=== PATIENT | female | born 1985 | race Hispanic/Latino ===

== ENCOUNTER 2016-08-12 11:31 | Emergency (ER) | payer OTHER, SELFPAY ==
[~2016-08-12 11:31] MED LIST: ACET50TA PO; IBUP60TA PO; IRON325T PO; PRENTAB56 PO; VITAPRTA PO
[2016-08-12] MEDS ORDERED: KETOROLAC 30 MG/ML VIAL (J1885) As Ordered ONE (12:03)
[2016-08-12] MEDS ORDERED: METOCLOPRAMIDE INJ 10MG/2ML VIAL (J2765) As Ordered ONE (12:03)
[2016-08-12 12:19] LABS: BASO # 0.1 K/mm3 (0.0-0.2); BASO % 1.1 % (0.0-1.0); EOS # 0.3 K/mm3 (0.0-0.50); EOS % 2.7 % (0.0-3.0); LARGE UNSTAINED CELL % 0.4 % (0.0-4.0); LYMPH # 1.4 K/mm3 (1.5-4.5); LYMPH % 12.2 % (24.0-44.0); MEAN CORPUSCULAR HGB CONC 33.4 g/dl (32.0-36.5); MEAN CORPUSCULAR VOLUME 86.8 fl (80.0-96.0); MONO # 0.2 K/mm3 (0.0-0.8); NEUTROPHILS # 9.3 K/mm3 (1.8-7.7); NEUTROPHILS % 81.5 % (36.0-66.0); PLATELET COUNT, AUTOMATED 319 k/mm3 (150-450); RED CELL DISTRIBUTION WIDTH 13.9 % (11.5-14.5); WHITE BLOOD COUNT 11.4 K/mm3 (4.0-10.0)
[2016-08-12 12:35] LABS: ANION GAP 9 MEQ/L (8-16); BLOOD UREA NITROGEN 9 MG/DL (7-18); CALCIUM LEVEL 8.8 MG/DL (8.5-10.1); CARBON DIOXIDE LEVEL 23 MEQ/L (21-32); CHLORIDE LEVEL 106 MEQ/L (98-107); GLOMERULAR FILTRATION RATE > 60.0 (>60); GLUCOSE, FASTING 94 MG/DL (70-105); POTASSIUM SERUM 3.6 MEQ/L (3.5-5.1); SODIUM LEVEL 138 MEQ/L (136-145)
--- NOTE | 2016-08-12 13:29 | EDDOCDS ---
Physician Documentation [facility] Name: Naga Jarvis Age: 31 yrs Sex: Female : 1985 Arrival Date: 08/12/2016 Time: 11:31 Bed I7 / 29 Private MD: SONA Hastings Disposition: 08/12/16 13:13 Discharged to Home/Self Care. Impression: Migraine. - Condition is Stable. - Discharge Instructions: Migraine Headache. - Prescriptions for ZOFRAN ODT 4 mg - dissolve 1 tablet by ORAL route 4 times per day As needed do not chew, do not swallow whole; 10 tablet. - Medication Reconciliation, Work Release Form - 2 day form. - Follow up: Emergency Department; When: As needed. Follow up: SONA Hastings; When: Call to arrange an appointment; Reason: Wound/Symptom Recheck, Recheck today's complaints, Worsening of conditions, Continuance of care. - Problem is new. - Symptoms are resolved. Historical: - Allergies: no known allergies; - Home Meds: 1. Tylenol 325 mg Oral tab 2 tabs as needed (Last dose: 08/12/2016 07:00) - PMHx: Migaine headaches; Anxiety; Depression; - PSHx: none; - Social history: Smoking status: Patient uses tobacco products, current every day smoker. No barriers to communication noted, The patient speaks fluent Estonian. - Family history: Not pertinent. - : The pt / caregiver states he / she is not on anticoagulants. Home medication list is obtained from the patient. - Exposure Risk Screening:: None identified. 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 4 in. (162.56 cm) (R); 13:08 BP 105 / 66; Pulse 59; Resp 18; Temp 97.7(O); Pulse Ox 99% on R/A; Pain 0/10; jml1 11:33 Body Mass Index 22.31 (58.97 kg, 162.56 cm) dd6 MDM: 11:43 UCG by Nursing ordered. cc10 11:43 ketorolac 30 mg IVP once ordered. cc10 11:43 Metoclopramide 10 mg IV at 40 mg/hr once over 15 mins ordered. cc10 11:43 NS 0.9% 1000 ml IV at bolus once ordered. cc10 11:43 IV Saline Lock ordered. cc10 11:44 CBC with Diff Ordered. EDMS 11:44 BMP Ordered. EDMS 12:38 Financial registration complete. mm15 12:40 CBC with Diff Reviewed. cc10 12:40 BMP Reviewed. cc10 12:40 Vital Signs ordered. cc10 12:45 [facility] Payment Agreement was scanned into [employer] app and attached to record. mm15 Point of Care Testing: Urine : 11:53 hCG Reading: Negative; Control Reading: Positive; ct3 Ranges: Administered Medications: 12:20 Drug: ketorolac 30 mg [ketorolac 30 mg/mL (1 mL) injection solution (1 mL)] Route: IVP; ms18 Site: right antecubital; 12:20 Drug: Metoclopramide 10 mg [metoclopramide 5 mg/mL injection solution] Route: IV; Rate: ms18 40 mg/hr; Infused Over: 15 mins; Site: right antecubital; 12:20 Drug: NS 0.9% 1000 ml [sodium chloride 0.9 % intravenous solution] Route: IV; Rate: ms18 bolus; Site: right antecubital; 13:28 Follow up: IV Status: Completed infusion; IV Intake: 1000ml ms18 Signatures: Dispatcher [employer] Ramesh Foy RN RN dwg McGrath, Marlynn mm15 Luis Carlos Ardon PA-C PARoge cc10 Chana Diana RN RN ms18 The chart was reviewed and I authenticate all verbal orders and agree with the evaluation and treatment provided.Attachments: 12:45 [facility] Payment Agreement mm15 MTDD
--- NOTE | 2016-08-12 13:29 | EDDOCDS ---
Nurse's Notes [facility] Name: Naga Jarvis Age: 31 yrs Sex: Female : 1985 Arrival Date: 08/12/2016 Time: 11:31 Bed I7 / 29 Private MD: SONA Hastings Diagnosis: Migraine Presentation: 08/12 11:35 Presenting complaint: Patient states: Multiple complaints, ''Migraine headache'' since dwg 7am today, started vomiting at 8am. Adult Sepsis Screening: The patient does not have new or worsening altered mentation. Patient's respiratory rate is less than 22. Systolic blood pressure is greater than 100. Patient has a qSOFA score of 0- Negative Sepsis Screen. No known or suspected infection- Negative Sepsis Screen. Suicide/Homicide risk assessment- the patient denies having any suicidal and/or homicidal ideations and does not present with any other emotional, behavioral or mental health complaints. Status: The patient is a dependent. Transition of care: patient was not received from another setting of care. 11:35 Acuity: NIESHA Level 3 dwg 11:35 Method Of Arrival: Walkin/Carried/Asstd dwg Triage Assessment: 11:38 General: Appears in no apparent distress, uncomfortable. Pain: Pain currently is 7 out dwg of 10 on a pain scale. HIV screening NA for this visit Offered previously. 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 Tylenol 325 mg Oral tab 2 tabs as needed (Last dose: 08/12/2016 07:00) - PMHx: Migaine headaches; Anxiety; Depression; - PSHx: none; - Social history: Smoking status: Patient uses tobacco products, current every day smoker. No barriers to communication noted, The patient speaks fluent Korean. - Family history: Not pertinent. - : The pt / caregiver states he / she is not on anticoagulants. Home medication list is obtained from the patient. - Exposure Risk Screening:: None identified. Screenin:20 Screening information is obtained from the patient. Fall risk: No risks identified. ms18 Assistance ADL's: requires no assistance with activities of daily living. Abuse/DV Screen: The patient / caregiver reports he/she is: not in a situation that causes fear, pain or injury. Nutritional screening: No deficits noted. Advance Directives: There is no living will. home support is adequate. Assessment: 12:20 General: Appears in no apparent distress, uncomfortable, Behavior is appropriate for ms18 age, cooperative. Pain: Location: head and abdomen Pain currently is 7 out of 10 on a pain scale. Neurological: Level of Consciousness is awake, alert, obeys commands, Oriented to person, place, time, Speech is normal, Facial symmetry appears normal. Respiratory: Airway is patent Respiratory effort is even, unlabored. GI: Abdomen is non- distended Bowel sounds present X 4 quads. Abd is soft X 4 quads Reports nausea, vomiting. Derm: Skin is pink, warm & dry. 13:26 General: Appears in no apparent distress, comfortable, Behavior is appropriate for age, ms18 cooperative, pleasant. Pain: Pain currently is 3 out of 10 on a pain scale. Neurological: Level of Consciousness is awake, alert, obeys commands, Oriented to person, place, time. Respiratory: No deficits noted. Derm: Skin is pink, warm & dry. Vital Signs: 11:33 BP 142 / 79; Pulse 68; Resp 18 S; Temp 97.3(O); Pulse Ox 99% on R/A; Weight 58.97 kg dd6 (R); Height 5 ft. 4 in. (162.56 cm) (R); 13:08 BP 105 / 66; Pulse 59; Resp 18; Temp 97.7(O); Pulse Ox 99% on R/A; Pain 0/10; jml1 11:33 Body Mass Index 22.31 (58.97 kg, 162.56 cm) dd6 Vitals: 11:33 Log In Time: August 12, 2016 at 11:31. dd6 ED Course: 11:33 Patient visited by John Crooks PCA. dd6 11:33 SONA Hastings is Private Physician. dd6 11:33 Patient moved to Waiting dd6 11:34 Patient moved to Pre RCE dd6 11:37 Triage Initiated dwg 11:38 [facility] cc10 11:38 Sandy Jin MD is Attending Physician. cc10 11:38 Patient moved to Triage 3 dwg 11:39 Patient visited by Luis Carlos Ardon PA-C. cc10 11:39 Patient visited by Luis Carlos Ardon PA-C. cc10 11:47 Patient moved to ct3 11:53 Patient visited by Kamryn Charles PCA. ct3 12:13 BMP Sent. jml1 12:13 CBC with Diff Sent. jml1 12:20 The patient / caregiver is instructed regarding the plan of care and ED course. Patient ms18 has correct armband on for positive identification. Placed in gown. Bed in low position. Call light in reach. Property :Personal belongings accompany Pt. 12:20 Inserted saline lock: 18 gauge in right antecubital area and blood collected. The ms18 patient tolerated the procedure well. 12:24 Patient visited by Chana Diana RN. ms18 12:45 [facility] Payment Agreement was scanned into [employer] and attached to record. mm15 13:09 Patient visited by Anup Singh. jml1 13:12 [facility] [place] Referral Physician. cc10 13:26 Patient visited by Chana Diana RN. ms18 13:26 Discontinued IV lock intact, bleeding controlled, pressure dressing applied, No ms18 redness/swelling at site. No procedures done that require assistance. Administered Medications: 12:20 Drug: ketorolac 30 mg [ketorolac 30 mg/mL (1 mL) injection solution (1 mL)] Route: IVP; ms18 Site: right antecubital; 12:20 Drug: Metoclopramide 10 mg [metoclopramide 5 mg/mL injection solution] Route: IV; Rate: ms18 40 mg/hr; Infused Over: 15 mins; Site: right antecubital; 12:20 Drug: NS 0.9% 1000 ml [sodium chloride 0.9 % intravenous solution] Route: IV; Rate: ms18 bolus; Site: right antecubital; 13:28 Follow up: IV Status: Completed infusion; IV Intake: 1000ml ms18 Point of Care Testing: Urine : 11:53 hCG Reading: Negative; Control Reading: Positive; ct3 Ranges: Intake: 13:28 IV: 1000.00ml; Total: 1000.00ml. ms18 Order Results: Lab Order: CBC with Diff; SPEC'M 08/12/16 12:08 Test: WHITE BLOOD COUNT; Value: 11.4; Range: 4.0-10.0; Abnormal: Above high normal; Units: K/mm3; Status: F Test: RED BLOOD COUNT; Value: 4.65; Range: 4.00-5.40; Units: M/mm3; Status: F Test: HEMOGLOBIN; Value: 13.5; Range: 12.0-16.0; Units: g/dl; Status: F Test: HEMATOCRIT; Value: 40.4; Range: 36.0-47.0; Units: %; Status: F Test: MEAN CORPUSCULAR VOLUME; Value: 86.8; Range: 80.0-96.0; Units: fl; Status: F Test: MEAN CORPUSCULAR HEMOGLOBIN; Value: 29.0; Range: 27.0-33.0; Units: pg; Status: F Test: MEAN CORPUSCULAR HGB CONC; Value: 33.4; Range: 32.0-36.5; Units: g/dl; Status: F Test: RED CELL DISTRIBUTION WIDTH; Value: 13.9; Range: 11.5-14.5; Units: %; Status: F Test: PLATELET COUNT, AUTOMATED; Value: 319; Range: 150-450; Units: k/mm3; Status: F Test: NEUTROPHILS %; Value: 81.5; Range: 36.0-66.0; Abnormal: Above high normal; Units: %; Status: F Test: LYMPH %; Value: 12.2; Range: 24.0-44.0; Abnormal: Below low normal; Units: %; Status: F Test: MONO %; Value: 2.0; Range: 0.0-5.0; Units: %; Status: F Test: EOS %; Value: 2.7; Range: 0.0-3.0; Units: %; Status: F Test: BASO %; Value: 1.1; Range: 0.0-1.0; Abnormal: Above high normal; Units: %; Status: F Test: LARGE UNSTAINED CELL %; Value: 0.4; Range: 0.0-4.0; Units: %; Status: F Test: NEUTROPHILS #; Value: 9.3; Range: 1.8-7.7; Abnormal: Above high normal; Units: K/mm3; Status: F Test: LYMPH #; Value: 1.4; Range: 1.5-4.5; Abnormal: Below low normal; Units: K/mm3; Status: F Test: MONO #; Value: 0.2; Range: 0.0-0.8; Units: K/mm3; Status: F Test: EOS #; Value: 0.3; Range: 0.0-0.50; Units: K/mm3; Status: F Test: BASO #; Value: 0.1; Range: 0.0-0.2; Units: K/mm3; Status: F Test: LARGE UNSTAINED CELL #; Value: 0.0; Range: 0.0-0.4; Units: K/mm3; Status: F Lab Order: [facility]; SPEC'M 08/12/16 12:08 Test: GLUCOSE, FASTING; Value: 94; Range: 70-105; Units: MG/DL; Status: F Test: BLOOD UREA NITROGEN; Value: 9; Range: 7-18; Units: MG/DL; Status: F Test: CREATININE FOR GFR; Value: 0.80; Range: 0.55-1.02; Units: MG/DL; Status: F Test: GLOMERULAR FILTRATION RATE; Value: > 60.0; Range: >60; Status: F Test: SODIUM LEVEL; Value: 138; Range: 136-145; Units: MEQ/L; Status: F Test: POTASSIUM SERUM; Value: 3.6; Range: 3.5-5.1; Units: MEQ/L; Status: F Test: CHLORIDE LEVEL; Value: 106; Range: 98-107; Units: MEQ/L; Status: F Test: CARBON DIOXIDE LEVEL; Value: 23; Range: 21-32; Units: MEQ/L; Status: F Test: ANION GAP; Value: 9; Range: 8-16; Units: MEQ/L; Status: F Test: CALCIUM LEVEL; Value: 8.8; Range: 8.5-10.1; Units: MG/DL; Status: F Test Note: ; Units are mL/min/1.73 m2 Chronic Kidney Disease Staging per NKF: Stage I & II GFR >=60 Normal to Mildly Decreased Stage III GFR 30-59 Moderately Decreased Stage IV GFR 15-29 Severely Decreased Stage V GFR <15 Very Little GFR Left ESRD GFR <15 on CORPORATE ASSOCIATE Outcome: 13:13 Discharge ordered by Provider. cc10 13:26 Discharge Assessment: Patient awake, alert and oriented x 3. No cognitive and/or ms18 functional deficits noted. Patient verbalized understanding of disposition instructions. patient administered narcotics - no. The following High Risk Discharge criteria are identified: None. Discharged to home ambulatory. Condition: good Condition: stable Condition: improved. Discharge instructions given to patient, Instructed on discharge instructions, follow up and referral plans. medication usage, Demonstrated understanding of instructions, medications, Pt was receptive of discharge instructions/ teaching. Prescriptions given X 1. No special radiology studies were completed. 13:28 Patient left the ED. ms18 Signatures: Ramesh Joe, RN RN dwg John Crooks, DERRICK BUILDER DERRICK BUILDER dd6 Kamryn Charles, DERRICK BUILDER DERRICK BUILDER ct3 Anup Singh jml1 Anita Samano mm15 Luis Carlos Ardon, PA-C PA-C cc10 Chana Diana,RN RN ms18 MTDD
--- NOTE | 2016-08-14 14:29 | EDDOCDS ---
Physician Documentation [facility] Name: Naga Jarvis Age: 31 yrs Sex: Female : 1985 Arrival Date: 08/12/2016 Time: 11:31 Bed I7 / 29 Private MD: SONA Hastings Disposition: 08/12/16 13:13 Discharged to Home/Self Care. Impression: Migraine. - Condition is Stable. - Discharge Instructions: Migraine Headache. - Prescriptions for ZOFRAN ODT 4 mg - dissolve 1 tablet by ORAL route 4 times per day As needed do not chew, do not swallow whole; 10 tablet. - Medication Reconciliation, Work Release Form - 2 day form. - Follow up: Emergency Department; When: As needed. Follow up: SONA Hastings; When: Call to arrange an appointment; Reason: Wound/Symptom Recheck, Recheck today's complaints, Worsening of conditions, Continuance of care. - Problem is new. - Symptoms are resolved. Historical: - Allergies: no known allergies; - Home Meds: 1. Tylenol 325 mg Oral tab 2 tabs as needed (Last dose: 08/12/2016 07:00) - PMHx: Migaine headaches; Anxiety; Depression; - PSHx: none; - Social history: Smoking status: Patient uses tobacco products, current every day smoker. No barriers to communication noted, The patient speaks fluent Uzbek. - Family history: Not pertinent. - : The pt / caregiver states he / she is not on anticoagulants. Home medication list is obtained from the patient. - Exposure Risk Screening:: None identified. 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 4 in. (162.56 cm) (R); 13:08 BP 105 / 66; Pulse 59; Resp 18; Temp 97.7(O); Pulse Ox 99% on R/A; Pain 0/10; jml1 11:33 Body Mass Index 22.31 (58.97 kg, 162.56 cm) dd6 MDM: 11:43 UCG by Nursing ordered. cc10 11:43 ketorolac 30 mg IVP once ordered. cc10 11:43 Metoclopramide 10 mg IV at 40 mg/hr once over 15 mins ordered. cc10 11:43 NS 0.9% 1000 ml IV at bolus once ordered. cc10 11:43 IV Saline Lock ordered. cc10 11:44 CBC with Diff Ordered. EDMS 11:44 BMP Ordered. EDMS 12:38 Financial registration complete. mm15 12:40 CBC with Diff Reviewed. cc10 12:40 BMP Reviewed. cc10 12:40 Vital Signs ordered. cc10 12:45 [facility] Payment Agreement was scanned into [employer] and attached to record. mm15 17:17 T-Sheet-- Draft Copy was scanned into [employer] and attached to record. klr Point of Care Testing: Urine : 11:53 hCG Reading: Negative; Control Reading: Positive; ct3 Ranges: Administered Medications: 12:20 Drug: ketorolac 30 mg [ketorolac 30 mg/mL (1 mL) injection solution (1 mL)] Route: IVP; ms18 Site: right antecubital; 13:29 Follow up: Response: Pain is decreased ms18 12:20 Drug: Metoclopramide 10 mg [metoclopramide 5 mg/mL injection solution] Route: IV; Rate: ms18 40 mg/hr; Infused Over: 15 mins; Site: right antecubital; 13:28 Follow up: IV Status: Completed infusion ms18 12:20 Drug: NS 0.9% 1000 ml [sodium chloride 0.9 % intravenous solution] Route: IV; Rate: ms18 bolus; Site: right antecubital; 13:28 Follow up: IV Status: Completed infusion; IV Intake: 1000ml ms18 Signatures: Dispatcher [employer] Ramesh Foy RN RN dwg McGrath, Marlynn mm15 Luis Carlos Ardon PA-C PARoge cc10 Chana Diana RN RN ms18 Deanna Garsia The chart was reviewed and I authenticate all verbal orders and agree with the evaluation and treatment provided.Attachments: 12:45 [facility] Payment Agreement mm15 17:17 T-Sheet-- Draft Copy klr Chart Complete MTDD
--- NOTE | 2016-08-14 14:29 | EDDOCDS ---
Physician Documentation [facility] Name: Naga Jarvis Age: 31 yrs Sex: Female : 1985 Arrival Date: 08/12/2016 Time: 11:31 Bed I7 / 29 Private MD: SONA Hastings Disposition: 08/12/16 13:13 Discharged to Home/Self Care. Impression: Migraine. - Condition is Stable. - Discharge Instructions: Migraine Headache. - Prescriptions for ZOFRAN ODT 4 mg - dissolve 1 tablet by ORAL route 4 times per day As needed do not chew, do not swallow whole; 10 tablet. - Medication Reconciliation, Work Release Form - 2 day form. - Follow up: Emergency Department; When: As needed. Follow up: SONA Hastings; When: Call to arrange an appointment; Reason: Wound/Symptom Recheck, Recheck today's complaints, Worsening of conditions, Continuance of care. - Problem is new. - Symptoms are resolved. Historical: - Allergies: no known allergies; - Home Meds: 1. Tylenol 325 mg Oral tab 2 tabs as needed (Last dose: 08/12/2016 07:00) - PMHx: Migaine headaches; Anxiety; Depression; - PSHx: none; - Social history: Smoking status: Patient uses tobacco products, current every day smoker. No barriers to communication noted, The patient speaks fluent Bulgarian. - Family history: Not pertinent. - : The pt / caregiver states he / she is not on anticoagulants. Home medication list is obtained from the patient. - Exposure Risk Screening:: None identified. 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 4 in. (162.56 cm) (R); 13:08 BP 105 / 66; Pulse 59; Resp 18; Temp 97.7(O); Pulse Ox 99% on R/A; Pain 0/10; jml1 11:33 Body Mass Index 22.31 (58.97 kg, 162.56 cm) dd6 MDM: 11:43 UCG by Nursing ordered. cc10 11:43 ketorolac 30 mg IVP once ordered. cc10 11:43 Metoclopramide 10 mg IV at 40 mg/hr once over 15 mins ordered. cc10 11:43 NS 0.9% 1000 ml IV at bolus once ordered. cc10 11:43 IV Saline Lock ordered. cc10 11:44 CBC with Diff Ordered. EDMS 11:44 BMP Ordered. EDMS 12:38 Financial registration complete. mm15 12:40 CBC with Diff Reviewed. cc10 12:40 BMP Reviewed. cc10 12:40 Vital Signs ordered. cc10 12:45 [facility] Payment Agreement was scanned into [employer] and attached to record. mm15 17:17 T-Sheet-- Draft Copy was scanned into [employer] and attached to record. klr Point of Care Testing: Urine : 11:53 hCG Reading: Negative; Control Reading: Positive; ct3 Ranges: Administered Medications: 12:20 Drug: ketorolac 30 mg [ketorolac 30 mg/mL (1 mL) injection solution (1 mL)] Route: IVP; ms18 Site: right antecubital; 13:29 Follow up: Response: Pain is decreased ms18 12:20 Drug: Metoclopramide 10 mg [metoclopramide 5 mg/mL injection solution] Route: IV; Rate: ms18 40 mg/hr; Infused Over: 15 mins; Site: right antecubital; 13:28 Follow up: IV Status: Completed infusion ms18 12:20 Drug: NS 0.9% 1000 ml [sodium chloride 0.9 % intravenous solution] Route: IV; Rate: ms18 bolus; Site: right antecubital; 13:28 Follow up: IV Status: Completed infusion; IV Intake: 1000ml ms18 Signatures: Dispatcher [employer] Ramesh Foy RN RN dwg McGrath, Marlynn mm15 Luis Carlos Ardon PA-C PARoge cc10 Chana Diana RN RN ms18 Deanna Garsia The chart was reviewed and I authenticate all verbal orders and agree with the evaluation and treatment provided.Attachments: 12:45 [facility] Payment Agreement mm15 17:17 T-Sheet-- Draft Copy klr Chart Complete MTDD
--- NOTE | 2016-08-14 14:29 | EDDOCDS ---
Nurse's Notes [facility] Name: Naga Jarvis Age: 31 yrs Sex: Female : 1985 Arrival Date: 08/12/2016 Time: 11:31 Bed I7 / 29 Private MD: SONA Hastings Diagnosis: Migraine Presentation: 08/12 11:35 Presenting complaint: Patient states: Multiple complaints, ''Migraine headache'' since dwg 7am today, started vomiting at 8am. Adult Sepsis Screening: The patient does not have new or worsening altered mentation. Patient's respiratory rate is less than 22. Systolic blood pressure is greater than 100. Patient has a qSOFA score of 0- Negative Sepsis Screen. No known or suspected infection- Negative Sepsis Screen. Suicide/Homicide risk assessment- the patient denies having any suicidal and/or homicidal ideations and does not present with any other emotional, behavioral or mental health complaints. Status: The patient is a dependent. Transition of care: patient was not received from another setting of care. 11:35 Acuity: NIESHA Level 3 dwg 11:35 Method Of Arrival: Walkin/Carried/Asstd dwg Triage Assessment: 11:38 General: Appears in no apparent distress, uncomfortable. Pain: Pain currently is 7 out dwg of 10 on a pain scale. HIV screening NA for this visit Offered previously. 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 Tylenol 325 mg Oral tab 2 tabs as needed (Last dose: 08/12/2016 07:00) - PMHx: Migaine headaches; Anxiety; Depression; - PSHx: none; - Social history: Smoking status: Patient uses tobacco products, current every day smoker. No barriers to communication noted, The patient speaks fluent Ukrainian. - Family history: Not pertinent. - : The pt / caregiver states he / she is not on anticoagulants. Home medication list is obtained from the patient. - Exposure Risk Screening:: None identified. Screenin:20 Screening information is obtained from the patient. Fall risk: No risks identified. ms18 Assistance ADL's: requires no assistance with activities of daily living. Abuse/DV Screen: The patient / caregiver reports he/she is: not in a situation that causes fear, pain or injury. Nutritional screening: No deficits noted. Advance Directives: There is no living will. home support is adequate. Assessment: 12:20 General: Appears in no apparent distress, uncomfortable, Behavior is appropriate for ms18 age, cooperative. Pain: Location: head and abdomen Pain currently is 7 out of 10 on a pain scale. Neurological: Level of Consciousness is awake, alert, obeys commands, Oriented to person, place, time, Speech is normal, Facial symmetry appears normal. Respiratory: Airway is patent Respiratory effort is even, unlabored. GI: Abdomen is non- distended Bowel sounds present X 4 quads. Abd is soft X 4 quads Reports nausea, vomiting. Derm: Skin is pink, warm & dry. 13:26 General: Appears in no apparent distress, comfortable, Behavior is appropriate for age, ms18 cooperative, pleasant. Pain: Pain currently is 3 out of 10 on a pain scale. Neurological: Level of Consciousness is awake, alert, obeys commands, Oriented to person, place, time. Respiratory: No deficits noted. Derm: Skin is pink, warm & dry. Vital Signs: 11:33 BP 142 / 79; Pulse 68; Resp 18 S; Temp 97.3(O); Pulse Ox 99% on R/A; Weight 58.97 kg dd6 (R); Height 5 ft. 4 in. (162.56 cm) (R); 13:08 BP 105 / 66; Pulse 59; Resp 18; Temp 97.7(O); Pulse Ox 99% on R/A; Pain 0/10; jml1 11:33 Body Mass Index 22.31 (58.97 kg, 162.56 cm) dd6 Vitals: 11:33 Log In Time: August 12, 2016 at 11:31. dd6 ED Course: 11:33 Patient visited by John Crooks PCA. dd6 11:33 SONA Hastings is Private Physician. dd6 11:33 Patient moved to Waiting dd6 11:34 Patient moved to Pre RCE dd6 11:37 Triage Initiated dwg 11:38 [facility] cc[facility] 11:38 Sandy Jin MD is Attending Physician. cc10 11:38 Patient moved to Triage 3 dwg 11:39 Patient visited by Luis Carlos Ardon PA-C. cc10 11:39 Patient visited by Luis Carlos Ardon PA-C. cc10 11:47 Patient moved to ct3 11:53 Patient visited by Kamryn Charles PCA. ct3 12:13 BMP Sent. jml1 12:13 CBC with Diff Sent. jml1 12:20 The patient / caregiver is instructed regarding the plan of care and ED course. Patient ms18 has correct armband on for positive identification. Placed in gown. Bed in low position. Call light in reach. Property :Personal belongings accompany Pt. 12:20 Inserted saline lock: 18 gauge in right antecubital area and blood collected. The ms18 patient tolerated the procedure well. 12:24 Patient visited by Chana Diana RN. ms18 12:45 [facility] Payment Agreement was scanned into [employer] and attached to record. mm15 13:09 Patient visited by Anup Singh. jml1 13:12 [facility] is Referral Physician. cc10 13:26 Patient visited by Chana Diana RN. ms18 13:26 Discontinued IV lock intact, bleeding controlled, pressure dressing applied, No ms18 redness/swelling at site. No procedures done that require assistance. 17:17 T-Sheet-- Draft Copy was scanned into [employer] and attached to record. klr Administered Medications: 12:20 Drug: ketorolac 30 mg [ketorolac 30 mg/mL (1 mL) injection solution (1 mL)] Route: IVP; ms18 Site: right antecubital; 13:29 Follow up: Response: Pain is decreased ms18 12:20 Drug: Metoclopramide 10 mg [metoclopramide 5 mg/mL injection solution] Route: IV; Rate: ms18 40 mg/hr; Infused Over: 15 mins; Site: right antecubital; 13:28 Follow up: IV Status: Completed infusion ms18 12:20 Drug: NS 0.9% 1000 ml [sodium chloride 0.9 % intravenous solution] Route: IV; Rate: ms18 bolus; Site: right antecubital; 13:28 Follow up: IV Status: Completed infusion; IV Intake: 1000ml ms18 Point of Care Testing: Urine : 11:53 hCG Reading: Negative; Control Reading: Positive; ct3 Ranges: Intake: 13:28 IV: 1000.00ml; Total: 1000.00ml. ms18 Order Results: Lab Order: CBC with Diff; SPEC'M 08/12/16 12:08 Test: WHITE BLOOD COUNT; Value: 11.4; Range: 4.0-10.0; Abnormal: Above high normal; Units: K/mm3; Status: F Test: RED BLOOD COUNT; Value: 4.65; Range: 4.00-5.40; Units: M/mm3; Status: F Test: HEMOGLOBIN; Value: 13.5; Range: 12.0-16.0; Units: g/dl; Status: F Test: HEMATOCRIT; Value: 40.4; Range: 36.0-47.0; Units: %; Status: F Test: MEAN CORPUSCULAR VOLUME; Value: 86.8; Range: 80.0-96.0; Units: fl; Status: F Test: MEAN CORPUSCULAR HEMOGLOBIN; Value: 29.0; Range: 27.0-33.0; Units: pg; Status: F Test: MEAN CORPUSCULAR HGB CONC; Value: 33.4; Range: 32.0-36.5; Units: g/dl; Status: F Test: RED CELL DISTRIBUTION WIDTH; Value: 13.9; Range: 11.5-14.5; Units: %; Status: F Test: PLATELET COUNT, AUTOMATED; Value: 319; Range: 150-450; Units: k/mm3; Status: F Test: NEUTROPHILS %; Value: 81.5; Range: 36.0-66.0; Abnormal: Above high normal; Units: %; Status: F Test: LYMPH %; Value: 12.2; Range: 24.0-44.0; Abnormal: Below low normal; Units: %; Status: F Test: MONO %; Value: 2.0; Range: 0.0-5.0; Units: %; Status: F Test: EOS %; Value: 2.7; Range: 0.0-3.0; Units: %; Status: F Test: BASO %; Value: 1.1; Range: 0.0-1.0; Abnormal: Above high normal; Units: %; Status: F Test: LARGE UNSTAINED CELL %; Value: 0.4; Range: 0.0-4.0; Units: %; Status: F Test: NEUTROPHILS #; Value: 9.3; Range: 1.8-7.7; Abnormal: Above high normal; Units: K/mm3; Status: F Test: LYMPH #; Value: 1.4; Range: 1.5-4.5; Abnormal: Below low normal; Units: K/mm3; Status: F Test: MONO #; Value: 0.2; Range: 0.0-0.8; Units: K/mm3; Status: F Test: EOS #; Value: 0.3; Range: 0.0-0.50; Units: K/mm3; Status: F Test: BASO #; Value: 0.1; Range: 0.0-0.2; Units: K/mm3; Status: F Test: LARGE UNSTAINED CELL #; Value: 0.0; Range: 0.0-0.4; Units: K/mm3; Status: F Lab Order: [facility]; SPEC'M 08/12/16 12:08 Test: GLUCOSE, FASTING; Value: 94; Range: 70-105; Units: MG/DL; Status: F Test: BLOOD UREA NITROGEN; Value: 9; Range: 7-18; Units: MG/DL; Status: F Test: CREATININE FOR GFR; Value: 0.80; Range: 0.55-1.02; Units: MG/DL; Status: F Test: GLOMERULAR FILTRATION RATE; Value: > 60.0; Range: >60; Status: F Test: SODIUM LEVEL; Value: 138; Range: 136-145; Units: MEQ/L; Status: F Test: POTASSIUM SERUM; Value: 3.6; Range: 3.5-5.1; Units: MEQ/L; Status: F Test: CHLORIDE LEVEL; Value: 106; Range: 98-107; Units: MEQ/L; Status: F Test: CARBON DIOXIDE LEVEL; Value: 23; Range: 21-32; Units: MEQ/L; Status: F Test: ANION GAP; Value: 9; Range: 8-16; Units: MEQ/L; Status: F Test: CALCIUM LEVEL; Value: 8.8; Range: 8.5-10.1; Units: MG/DL; Status: F Test Note: ; Units are mL/min/1.73 m2 Chronic Kidney Disease Staging per NKF: Stage I & II GFR >=60 Normal to Mildly Decreased Stage III GFR 30-59 Moderately Decreased Stage IV GFR 15-29 Severely Decreased Stage V GFR <15 Very Little GFR Left ESRD GFR <15 on BUSINESS PROFESSOR Outcome: 13:13 Discharge ordered by Provider. cc10 13:26 Discharge Assessment: Patient awake, alert and oriented x 3. No cognitive and/or ms18 functional deficits noted. Patient verbalized understanding of disposition instructions. patient administered narcotics - no. The following High Risk Discharge criteria are identified: None. Discharged to home ambulatory. Condition: good Condition: stable Condition: improved. Discharge instructions given to patient, Instructed on discharge instructions, follow up and referral plans. medication usage, Demonstrated understanding of instructions, medications, Pt was receptive of discharge instructions/ teaching. Prescriptions given X 1. No special radiology studies were completed. 13:28 Patient left the ED. ms18 Signatures: Ramesh Joe, RN RN dwg John Crooks, SANITARY CHEMIST SANITARY CHEMIST dd6 Kamryn Charles, SANITARY CHEMIST SANITARY CHEMIST ct3 Anup Singh jml1 Anita Samano mm15 Luis Carlos Ardon, PA-C PA-C cc10 Chana Diana RN RN ms18 Deanna Garsia Chart Complete MTDD
== END 2016-08-12 13:28 | disposition home or self-care (01) ==
LOC: M ED 11:31
DX: G43.909 Migraine, unspecified, not intractable, without status migrainosus (principal); F41.9 Anxiety disorder, unspecified; F32.9 Major depressive disorder, single episode, unspecified; F17.200 Nicotine dependence, unspecified, uncomplicated
CPT/HCPCS: 36415; 80048; 81025; 85025; 96365; 96375; 99284; J1885; J2765

== ENCOUNTER 2017-01-18 22:21 | Emergency (ER) | payer OTHER, SELFPAY ==
[~2017-01-18] VITALS: Ht 162.6 cm; Wt 59.1 kg
[2017-01-18] MEDS ORDERED: NUVAMIS2 (22:43)
[2017-01-18] MEDS ORDERED: ESZO1TAB (22:43)
[2017-01-18] MEDS ORDERED: TRAZ50TA11 (22:43)
[2017-01-18] MEDS ORDERED: SERT-138 (22:43)
[2017-01-19] MEDS ORDERED: traMADol 50 MG TAB As Ordered ONE (01:00)
[2017-01-19] MEDS: traMADol 50 MG TAB (BULK 4 TAB ED) PO ONE (01:00)
[2017-01-19] MEDS: BACTRIM 160MG/800MG DS TAB PO ONE (01:07)
[2017-01-19 01:13] VITALS: BP 128/78
== END 2017-01-19 01:15 | disposition home or self-care (01) ==
LOC: M ED 22:21
DX: N75.0 Cyst of Bartholin's gland (principal)

== ENCOUNTER 2017-06-28 15:33 | Emergency (ER) | payer OTHER ==
[~2017-06-28] VITALS: Ht 162.6 cm; Wt 59.1 kg
[~2017-06-28 15:33] MED LIST changes: +ESZO1TAB; +NUVAMIS2; +SERT-138; +TRAZ50TA11
[2017-06-28 15:34] VITALS: BP 115/69
[2017-06-28] MEDS ORDERED: CYCL10TA PO (16:51)
--- NOTE | 2017-06-29 07:12 | REP ---
Cervical spine three views AP and lateral projections: Vertebral body heights, interspacing alignment are normal. Prevertebral soft tissues are normal. Facets are normally aligned. There is no odontoid view. Impression: Essentially negative cervical spine AP and lateral views. Signed by Ramesh Sinha MD 06/28/2017 04:59 P
== END 2017-06-28 17:06 | disposition home or self-care (01) ==
LOC: M ED 15:33
DX: S16.1XXA Strain of muscle, fascia and tendon at neck level, initial encounter (principal); V49.49XA Driver injured in collision with other motor vehicles in traffic accident, initial encounter; Y92.410 Unspecified street and highway as the place of occurrence of the external cause; Y93.89 Activity, other specified; Y99.8 Other external cause status; F41.9 Anxiety disorder, unspecified; F33.9 Major depressive disorder, recurrent, unspecified; Z79.899 Other long term (current) drug therapy

== ENCOUNTER 2017-07-04 19:24 | Emergency (ER) | payer OTHER ==
[~2017-07-04] VITALS: Ht 162.6 cm; Wt 59.1 kg
[~2017-07-04 19:24] MED LIST changes: +CYCL10TA PO
[2017-07-04] MEDS ORDERED: NS 1,000 ML IV ONE (21:15)
[2017-07-04] MEDS ORDERED: ONDANSETRON 4MG/2ML VIAL (J2405) IV ONE (21:15)
[2017-07-04] MEDS ORDERED: diphenhydrAMINE INJ 50MG/ML VIAL (J1200) IV ONE (21:15)
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
[2017-07-04] MEDS ORDERED: PERC5TAB12 PO (23:55)
[2017-07-04 23:58] VITALS: BP 107/67
[2017-07-05] MEDS ORDERED: PERCOCET 5MG/325MG TAB PO ONE
[2017-07-05] MEDS ORDERED: KETOROLAC 30 MG/ML VIAL (J1885) IV ONE
== END 2017-07-05 00:11 | disposition home or self-care (01) ==
LOC: M ED 19:24
DX: G43.909 Migraine, unspecified, not intractable, without status migrainosus (principal); M47.812 Spondylosis without myelopathy or radiculopathy, cervical region; Z72.0 Tobacco use
CPT/HCPCS: 70450; 72125; 96374; 96375; 99284; J1200; J2405

== ENCOUNTER 2017-07-10 21:31 | Emergency (ER) | payer OTHER ==
[2017-07-11] MEDS: diphenhydrAMINE INJ 50MG/ML VIAL (J1200) IV (04:49)
[2017-07-11] MEDS: HALOPERIDOL 5 MG/ML VIAL (J1630) IV (04:50)
[2017-07-11 04:58] LABS: CARBOXYHEMOGLOBIN 3.4 % (0.0-1.5)
[2017-07-11 05:15] LABS: CONTROL LINE HCG INT CTR LINE PRESENT
[2017-07-11 05:20] LABS: ANION GAP 6 MEQ/L (8-16); BLOOD UREA NITROGEN 11 MG/DL (7-18); CALCIUM LEVEL 9.1 MG/DL (8.5-10.1); CARBON DIOXIDE LEVEL 27 MEQ/L (21-32); CHLORIDE LEVEL 106 MEQ/L (98-107); CREATININE FOR GFR 0.82 MG/DL (0.55-1.02); GLOMERULAR FILTRATION RATE > 60.0 (>60); GLUCOSE, FASTING 94 MG/DL (70-105); POTASSIUM SERUM 3.9 MEQ/L (3.5-5.1); SODIUM LEVEL 139 MEQ/L (136-145)
== END 2017-07-11 06:09 | disposition home or self-care (01) ==
LOC: M ED 07-11 06:09
DX: G43.009 Migraine without aura, not intractable, without status migrainosus (principal); F33.9 Major depressive disorder, recurrent, unspecified; F17.210 Nicotine dependence, cigarettes, uncomplicated
CPT/HCPCS: J1200